=== PATIENT | female | born 2000 | race Caucasian/White ===

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

== ENCOUNTER 2021-10-26 11:35 | Emergency (ER) | payer OTHER ==
[~2021-10-26] VITALS: Ht 162.6 cm; Wt 59.0 kg
== END 2021-10-26 12:39 | disposition home or self-care (01) ==
LOC: ER 11:35
DX: U07.1 COVID-19 (principal)